=== PATIENT | male | born 1950 | race Caucasian/White ===

== ENCOUNTER → 2020-12-20 | Outpatient (CLI) | payer MEDICARE ==
[2020-12-20 09:25] LABS: ANION GAP 4 mmol/L (5-15); CALCIUM 9.4 mg/dL (8.5-10.1); CHLORIDE 107 mmol/L (98-107)
[2020-12-20 09:29] LABS: CHOL/HDL RATIO 4.7; CHOLESTEROL, TOTAL 276 mg/dL (140-239); CREATININE 0.83 mg/dL (0.7-1.3); HDL CHOL % 21 % (26-37); HDL CHOLESTEROL (DIRECT) 59 mg/dL (40-60); TRIGLYCERIDES 268 mg/dL (50-200); VLDL CHOLESTEROL 54 mg/dL (0-25)
[2020-12-20 09:30] LABS: LDL CHOLESTEROL,CALCULATED 163 mg/dL (54-169); LDL/HDL RATIO 2.8 (0.5-3.0)
== END | disposition home or self-care (01) ==
LOC: LAB 08:46
PROVIDERS: ATTEND Internal Medicine
DX: E78.2 Mixed hyperlipidemia (principal); E83.52 Hypercalcemia; M10.9 Gout, unspecified; R73.03 Prediabetes
CPT/HCPCS: 36415; 80048; 80061; 84550